=== PATIENT | female | born 1995 | race Caucasian/White ===

== ENCOUNTER 2017-07-04 19:25 | Emergency (ER) | payer BC ==
[2017-07-04 19:59] VITALS: BP 125/79
--- NOTE | 2017-07-04 20:30 | UC ---
Complaint Female HPI - HPI Summary HPI Summary: dysuria, back pain for the last 4 days, dysuria - History Of Current Complaint Chief Complaint: UCGU Stated Complaint: URINARY Time Seen by Provider: 07/04/17 20:29 Hx Obtained From: Patient Hx Last Menstrual Period: 05/23/17 states had a miscarriage ?: No Onset/Duration: Sudden Onset, Lasting Days Timing: Constant Severity Initially: Mild Severity Currently: Moderate Character: Sharp - on occasion, Dull Aggravating Factor(s): Urination Associated Signs And Symptoms: Positive: Back Pain - Allergies/Home Medications Allergies/Adverse Reactions: Allergies Allergy/AdvReac Type Severity Reaction Status Date / Time Amoxicillin Allergy Severe Rash Verified 07/04/17 19:59 Home Medications: Home Medications Fexofenadine (NF) [Pooja 180 (NF)] 180 mg PO DAILY 07/04/17 [History Confirmed 07/04/17] busPIRone TAB* [Buspar TAB*] 10 mg PO BID 07/04/17 [History Confirmed 07/04/17] PMH/Surg Hx/FS Hx/Imm Hx Previously Healthy: Yes GI/ History: Kidney Stones - Surgical History Surgical History: Yes Surgery Procedure, Year, and Place: T&A, 2000, [facility]. 2010 - Family History Known Family History: Positive: Hypertension Negative: Diabetes - Social History Alcohol Use: Occasionally Substance Use Type: None Smoking Status (MU): Never Smoked Tobacco - Immunization History Most Recent Influenza Vaccination: 06/2017 Vaccination Up to Date: Yes Review of Systems Constitutional: Negative Skin: Negative Eyes: Negative ENT: Negative Respiratory: Negative Cardiovascular: Negative Gastrointestinal: Negative Genitourinary: Dysuria, Hematuria, Frequency, Urgency Motor: Negative Musculoskeletal: Myalgia - flank pain Neurological: Negative Psychological: Negative Is Patient Immunocompromised?: No All Other Systems Reviewed And Are Negative: Yes Physical Exam Triage Information Reviewed: Yes Appearance: Well-Nourished, Ill-Appearing, Pain Distress Vital Signs: Initial Vital Signs Temp 98.3 F 07/04/17 19:53 Pulse 81 07/04/17 19:53 Resp 16 07/04/17 19:53 BP 125/79 07/04/17 19:53 Pulse Ox 99 07/04/17 19:53 Vital Signs Reviewed: Yes Eye Exam: Normal ENT Exam: Normal Dental Exam: Normal Neck exam: Normal Respiratory Exam: Normal Cardiovascular Exam: Normal Abdomen Description: Positive: Nontender, No Organomegaly, Soft, CVA Tenderness (R) - pos, CVA Tenderness (L) - pos Bowel Sounds: Positive: Present Musculoskeletal Exam: Normal Neurological Exam: Normal Psychological Exam: Normal Skin Exam: Normal Complaint Female Dx - Course Course Of Treatment: hx obtained, exam performed ,meds reviewed, UA pos for blood, treated for cystiitis and possible renal stone. - Differential Dx/Diagnosis Differential Diagnosis/HQI/PQRI: Ureteral Stone, Urinary Tract Infection Provider Diagnoses: hematuria, cystitis, bilateral flank pain Discharge - Discharge Plan Condition: Stable Disposition: HOME Prescriptions: Cephalexin CAP* [Keflex CAP*] 500 mg PO BID #13 cap Tamsulosin CAP* [Flomax CAP*] 0.4 mg PO BEDTIME #7 cap Patient Education Materials: Flank Pain (ED) Referrals: SIMONA Dorsey [Primary Care Provider] - Additional Instructions: 1. take the medication as prescribed. 2. Increas fluid intake and add lemon to your water 3. Follow up with any uncontrolled or worsening pain, decreased urination, fever or other troubling symptoms
[2017-07-04] MEDS ORDERED: Cephalexin CAP* 500 MG PO ONE (20:38)
== END 2017-07-04 20:51 | disposition home or self-care (01) ==
LOC: UCCORT 19:25
DX: N30.91 Cystitis, unspecified with hematuria (principal); R30.0 Dysuria; M54.5 Low back pain; Z32.02 Encounter for pregnancy test, result negative; Z88.1 Allergy status to other antibiotic agents; Z87.442 Personal history of urinary calculi
CPT/HCPCS: 81003; 84702; 87077; 87086; 99212; A9270-GY; G0463

== ENCOUNTER 2017-08-03 09:59 | Emergency (ER) | payer BC ==
[2017-08-03 10:09] VITALS: BP 128/70
--- NOTE | 2017-08-03 11:21 | UC ---
Complaint Female HPI - HPI Summary HPI Summary: [employer], DIAGNOSED WITH UTI, GIVEN KEFLEX. SYMPTOMS GOT A LITTLE BETTER, THEN RETURNED. CURRENTLY HAVING DISCOMFORT WITH URINATION. LOW GRADE BACK PAIN L >R. NO FEVER. NO VAGINAL DISCHARGE. NO ABDOMINAL PAIN. NO NEW SEXUAL PARTNERS, SAME MONOGAMOUS PARTNER FOR 6 MONTHS. - History Of Current Complaint Chief Complaint: UCGU Stated Complaint: RE-CK URINARY ISSUE Time Seen by Provider: 08/03/17 10:03 Hx Obtained From: Patient Hx Last Menstrual Period: May had a miscarriage Onset/Duration: Gradual Onset, Lasting Weeks Timing: Intermittent Severity Initially: Mild Severity Currently: Mild Character: Dull Aggravating Factor(s): Urination Associated Signs And Symptoms: Positive: Back Pain - MILD L >R. Negative: Fever , Vaginal Bleeding/Discharge - Risk Factors Ectopic Risk Factor: Negative Ovarian Torsion Risk Factor: Negative - Allergies/Home Medications Allergies/Adverse Reactions: Allergies Allergy/AdvReac Type Severity Reaction Status Date / Time Amoxicillin Allergy Severe Rash Verified 08/03/17 10:09 PMH/Surg Hx/FS Hx/Imm Hx Previously Healthy: Yes - Surgical History Surgical History: Yes Surgery Procedure, Year, and Place: T&A, 2000, [facility]. 2010 - Family History Known Family History: Positive: Hypertension Negative: Diabetes - Social History Occupation: Employed Full-time Lives: With Family Alcohol Use: Occasionally Substance Use Type: None Smoking Status (MU): Never Smoked Tobacco - Immunization History Most Recent Influenza Vaccination: 06/2017 Vaccination Up to Date: Yes Review of Systems Constitutional: Negative Skin: Negative Eyes: Negative ENT: Negative Respiratory: Negative Cardiovascular: Negative Gastrointestinal: Negative Genitourinary: Dysuria, Frequency Motor: Negative Neurovascular: Negative Musculoskeletal: Myalgia - MILD LOW BACK PAIN Neurological: Negative Psychological: Negative Is Patient Immunocompromised?: No All Other Systems Reviewed And Are Negative: Yes Physical Exam Triage Information Reviewed: Yes Appearance: Well-Appearing, No Pain Distress, Well-Nourished Vital Signs: Initial Vital Signs Temp 97.7 F 08/03/17 10:03 Pulse 87 08/03/17 10:03 Resp 14 08/03/17 10:03 BP 128/70 08/03/17 10:03 Pulse Ox 99 08/03/17 10:03 Vital Signs Reviewed: Yes Eye Exam: Normal ENT Exam: Normal ENT: Positive: Normal ENT inspection, TMs normal Dental Exam: Normal Neck exam: Normal Neck: Positive: Supple, Nontender, No Lymphadenopathy Respiratory Exam: Normal Respiratory: Positive: Chest non-tender, Lungs clear, Normal breath sounds, No respiratory distress, No accessory muscle use Cardiovascular Exam: Normal Cardiovascular: Positive: RRR, No Murmur, Pulses Normal Abdominal Exam: Normal Abdomen Description: Positive: Nontender, No Organomegaly, Soft, CVA Tenderness (L) Musculoskeletal Exam: Normal Neurological Exam: Normal Psychological Exam: Normal Skin Exam: Normal Complaint Female Dx - Differential Dx/Diagnosis Differential Diagnosis/HQI/PQRI: Cervicitis, Sexually Transmitted Disease, Ureteral Stone, Urinary Tract Infection, Other - BACTERIAL VAGINOSIS Provider Diagnoses: URINARY TRACT INFECTION Discharge - Discharge Plan Condition: Stable Disposition: HOME Prescriptions: Sulfamethox/Trimethoprim DS* [Bactrim DS 800/160 TAB*] 1 tab PO BID #10 tab Patient Education Materials: Urinary Tract Infection in Women (ED), Dysuria (ED ) Referrals: María Rizvi MD [Primary Care Provider] -
--- NOTE | 2017-08-05 13:41 | UC ---
Progress - Progress Note Progress Note: 1. Urine cx is neg - d/c bactrim 2. + gardnarella, negative shawn. start flagyl 500mgs bid x 7 days. I will send it in. no ETOH while on this medication. Please call pt
== END 2017-08-03 11:26 | disposition home or self-care (01) ==
LOC: UCCORT 09:59
DX: N39.0 Urinary tract infection, site not specified (principal); Z32.02 Encounter for pregnancy test, result negative; Z88.1 Allergy status to other antibiotic agents
CPT/HCPCS: 81003; 84702; 87070; 87086; 87480; 87491; 87510; 87591; 87660; 99212; G0463

== ENCOUNTER 2018-01-21 15:38 | Emergency (ER) | payer BC ==
[2018-01-21 16:00] VITALS: BP 134/78
[2018-01-21] MEDS ORDERED: Ibuprofen TAB* 600 MG PO ONE (16:24)
--- NOTE | 2018-01-21 16:52 | UC ---
Hand/Wrist HPI - HPI Summary HPI Summary: 22 yo female presents about 30 minutes after right distal forearm was slammed in car door see is right handed - History Of Current Complaint Chief Complaint: UCTrauma Stated Complaint: RIGHT ARM INJURY Time Seen by Provider: 01/21/18 16:20 Hx Obtained From: Patient Hx Last Menstrual Period: 09/2018 - irregular Onset/Duration: Sudden Onset Severity Initially: Moderate Severity Currently: Moderate Pain Intensity: 7 Pain Scale Used: 0-10 Numeric Aggravating Factor(s): Movement, Flexion, Extension Alleviating Factor(s): Nothing Related History: Dominant Hand Right - Allergies/Home Medications Allergies/Adverse Reactions: Allergies Allergy/AdvReac Type Severity Reaction Status Date / Time amoxicillin Allergy Intermediate Rash Verified 01/21/18 16:00 Home Medications: Home Medications Sertraline* [Zoloft*] 100 mg PO DAILY 01/21/18 [History Confirmed 01/21/18] PMH/Surg Hx/FS Hx/Imm Hx Previously Healthy: Yes - Surgical History Surgical History: Yes Surgery Procedure, Year, and Place: T&A, 2000, [facility]. 2010 - Family History Known Family History: Positive: Hypertension Negative: Diabetes - Social History Alcohol Use: Occasionally Substance Use Type: None Smoking Status (MU): Never Smoked Tobacco - Immunization History Most Recent Influenza Vaccination: 06/2017 Vaccination Up to Date: Yes Review of Systems Constitutional: Negative Skin: Negative Eyes: Negative ENT: Negative Respiratory: Negative Cardiovascular: Negative Gastrointestinal: Negative Genitourinary: Negative Motor: Negative Neurovascular: Negative Musculoskeletal: Arthralgia, Myalgia Neurological: Negative Psychological: Negative Is Patient Immunocompromised?: No All Other Systems Reviewed And Are Negative: Yes Physical Exam Triage Information Reviewed: Yes Appearance: Well-Appearing, No Pain Distress, Well-Nourished Vital Signs: Initial Vital Signs Temp 98.3 F 01/21/18 15:55 Pulse 87 01/21/18 15:55 Resp 18 01/21/18 15:55 BP 134/78 01/21/18 15:55 Pulse Ox 100 01/21/18 15:55 Eyes: Positive: Conjunctiva Clear ENT: Positive: Hearing grossly normal. Negative: Nasal congestion, Nasal drainage, Trismus, Muffled voice, Hoarse voice Respiratory: Positive: Lungs clear, Normal breath sounds, No respiratory distress, No accessory muscle use Cardiovascular: Positive: RRR, No Murmur Musculoskeletal: Positive: ROM Limited @ - right wrist, Edema @ - distal R FA, Other: - distal n/v intact Psychological Exam: Normal Skin Exam: Normal Diagnostics - Radiology No standard instances Xray Interpretation: No Acute Changes Radiology Interpretation Completed By: ED Physician Hand/Wrist Course/Dx - Differential Dx/Diagnosis Provider Diagnoses: right forearm contusion Discharge - Sign-Out/Discharge Documenting (check all that apply): Discharge - Discharge Plan Condition: Stable Disposition: HOME Patient Education Materials: Contusion in Adults (ED) Referrals: Jackson Le MD [Medical Doctor] - If Needed (recheck for worsening symptoms or lack of improvement) Additional Instructions: rest elevate elevate elevate ice splint for comfort advil or aleve - Billing Disposition and Condition Condition: STABLE Disposition: HOME
--- NOTE | 2018-01-21 18:10 | RAD ---
INDICATION: Mid right forearm pain after car door was shut on arm TECHNIQUE: 2 views of the right forearm were obtained. FINDINGS: The bones are normal alignment. Joint spaces appear maintained. No fracture is seen. IMPRESSION: No radiographic evidence of acute fracture or dislocation. If the patient's symptoms persist, follow-up imaging is recommended.
== END 2018-01-21 16:59 | disposition home or self-care (01) ==
LOC: UCCORT 15:38
DX: S50.11XA Contusion of right forearm, initial encounter (principal); W23.0XXA Caught, crushed, jammed, or pinched between moving objects, initial encounter; Y92.9 Unspecified place or not applicable; Z32.02 Encounter for pregnancy test, result negative; Z88.3 Allergy status to other anti-infective agents
CPT/HCPCS: 84702; 99213; A9270-GY; G0463